=== PATIENT | male | born 1990 | race Caucasian/White ===

== ENCOUNTER 2021-04-28 02:10 | Emergency (ER) | payer OTHER ==
[~2021-04-28] VITALS: Ht 175.3 cm; Wt 127.0 kg
[2021-04-28 02:18] VITALS: BP 134/82
--- NOTE | 2021-04-28 02:59 | NUR ---
PER LAB COVID ANTIGEN POSITIVE
--- NOTE | 2021-04-28 03:14 | NUR ---
Patient discharged to care home in stable condition. Written and verbal after care instructions given. Patient verbalizes understanding of instruction.
== END 2021-04-28 03:48 ==
LOC: ER 02:15
DX: U07.1 COVID-19 (principal); Z98.890 Other specified postprocedural states
CPT/HCPCS: 87426; 99283; C9803